=== PATIENT | female | born 2000 | race Caucasian/White ===

== ENCOUNTER 2022-01-02 15:05 | Emergency (ER) | payer OTHER ==
[~2022-01-02] VITALS: Ht 162.6 cm; Wt 60.3 kg
[2022-01-02] MEDS ORDERED: ANUSOL-HC25 MG RC (16:44)
[2022-01-02] MEDS ORDERED: IBUPROFEN600 MG PO (16:44)
[2022-01-02 16:55] VITALS: BP 118/80
== END 2022-01-02 16:50 | disposition home or self-care (01) ==
LOC: ER 15:47
DX: K62.5 Hemorrhage of anus and rectum (principal); K64.8 Other hemorrhoids
CPT/HCPCS: 99283

== ENCOUNTER → 2022-01-18 | Day surgery (SDC) | payer OTHER ==
[~2022-01-18] MED LIST: ANUSOL-HC25 MG RC; FENTANYL CITRATE/PF 100MCG/2 ML INJ ONE; HYOSCYAMINE SULFATE 0.5 MG/ML INJ ONE; IBUPROFEN600 MG PO; LIDOCAINE HCL 2% LOCAL INJ 5 ML SDV VIAL INJ ONE; LO ESTRIN FE PO; METOCLOPRAMIDE HCL 10 MG/2ML VIAL ONE; MIDAZOLAM HCL 2 MG/2 ML VIAL ONE; ONDANSETRON HCL 4 MG ORAL DISINTEGRATING TAB ONE; PROPOFOL IV EMULSION 10 MG/ML 20 ML VIAL ONE
[2022-01-18 16:30] VITALS: BP 105/69
[2022-01-22 13:13] LABS: ENDOMYSIAL ANTIBODIES, IGA Negative (Negative)
== END | disposition home or self-care (01) ==
LOC: OR 10:44
PROVIDERS: ATTEND Internal Medicine Gastroenterology
DX: K29.50 Unspecified chronic gastritis without bleeding (principal); K31.7 Polyp of stomach and duodenum; K52.9 Noninfective gastroenteritis and colitis, unspecified; K20.90 Esophagitis, unspecified without bleeding; K59.09 Other constipation; K62.89 Other specified diseases of anus and rectum; Z88.6 Allergy status to analgesic agent; Z01.812 Encounter for preprocedural laboratory examination; Z20.822 Contact with and (suspected) exposure to COVID-19
CPT/HCPCS: 0223U; 36415; 43239; 45380; 81025; 82784; 83516; 83630; 83993; 86256; 87045; 87177; 87324; 87328; 87449; C9113; J1980; J2001; J2250; J2704; J2765; J3010; Q0162; 45378; 87493